=== PATIENT | female | born 1975 | race Caucasian/White ===

== ENCOUNTER → 2017-05-10 13:11 | Outpatient (CLI) | payer BC, SELFPAY ==
--- NOTE | 2017-05-10 13:17 | MM_ITS ---
MM Dig mamm DX unilat RT CAD ORDERING PHYSICIAN : Moises Alvarado PATIENT AGE: 42 years GENDER: Female COMPARISON: Previous mammograms: August. Ultrasound August 2016 INDICATION: Follow-up fairly asymmetric density right breast TECHNIQUE: Standard CC and MLO images were obtained. R2 CAD reviewed. FINDINGS: RIGHT BREAST: The subtle nodularity seen at the medial right breast appears stable if not less evident on today's studies. Spot views performed and reveal no suspicious or unique findings. No significant change patient may region bilateral mammogram in 6 months. IMPRESSION: No significant new findings. The vague questionable nodularity of the medial right breast is less evident today.. No areas of significant concern. May resume bilateral mammogram schedule 6 months BI-RADS Category: 2 Benign Finding(s) RECOMMENDED FOLLOW-UP: 6M - 6 MONTH FOLLOW-UP (A letter has been sent to the patient regarding results of the study.)
== END ==
PROVIDERS: Family Provider Internal Medicine Adolescent Medicine; PCP Internal Medicine Adolescent Medicine; Visit Provider Obstetrics & Gynecology
DX: R92.8 Other abnormal and inconclusive findings on diagnostic imaging of breast (principal)
CPT/HCPCS: 77065

== ENCOUNTER → 2017-09-20 12:57 | Outpatient (CLI) | payer BC, SELFPAY ==
[2017-09-20 13:47] LABS: Hemoglobin A1C 5.5 % (0.0-7.0)
[2017-09-20 14:08] LABS: Alanine Aminotransferase 17 U/L (12-78); Albumin Level 3.9 gm/dL (3.4-5.0); Albumin/Globulin Ratio 1.2 (1.1-1.8); Alkaline Phosphatase 84 U/L (46-116); Anion Gap 11.5 mEq/L (5-15); Aspartate Amino Transferase 10 U/L (15-37); Bilirubin,Total 0.4 mg/dL (0.2-1.0); Blood Urea Nitrogen 6 mg/dL (7-18); Calcium 8.8 mg/dL (8.5-10.1); Carbon Dioxide 27 mmol/L (21.0-32.0); Chloride 105 mmol/L (98-107); Chol/HDL Ratio 2.6 (1-3.5); Cholesterol 176 mg/dL (140-200); Creatinine,Serum 0.48 mg/dL (0.55-1.02); Estimated Glomerular Filt Rate 143 ml/min (>60); GFR (African American) 172 ML/MIN (>60); Globulin 3.3 gm/dl (1.3-3.2); Glucose 114 mg/dL (74-106); HDL Cholesterol 68 mg/dL (29-89); LDL Cholesterol 95 mg/dL (0-130); Potassium 4.5 mmoL/L (3.5-5.1); Sodium 139 mmol/L (136-145); Total Protein,Serum 7.2 gm/dL (6.4-8.2); Triglycerides 66 mg/dL (30-200); VLDL Cholesterol 13 mg/dL (0-40)
== END ==
PROVIDERS: Visit Provider Internal Medicine Adolescent Medicine
DX: E11.9 Type 2 diabetes mellitus without complications (principal)
CPT/HCPCS: 36415; 80053; 80061; 83036

== ENCOUNTER → 2018-07-04 15:44 | Outpatient (CLI) | payer BC, SELFPAY ==
[2018-07-04 17:00] LABS: Hemoglobin A1C 5.3 % (0.0-7.0)
[2018-07-04 17:26] LABS: Alanine Aminotransferase 20 U/L (12-78); Albumin Level 4.1 gm/dL (3.4-5.0); Albumin/Globulin Ratio 1.2 (1.1-1.8); Alkaline Phosphatase 91 U/L (46-116); Anion Gap 15.1 mEq/L (5-15); Aspartate Amino Transferase 8 U/L (15-37); Bilirubin,Total 0.4 mg/dL (0.2-1.0); Blood Urea Nitrogen 7 mg/dL (7-18); Calcium 9.4 mg/dL (8.5-10.1); Carbon Dioxide 26 mmol/L (21.0-32.0); Chloride 100 mmol/L (98-107); Chol/HDL Ratio 2.6 (1-3.5); Cholesterol 180 mg/dL (140-200); Creatinine,Serum 0.48 mg/dL (0.55-1.02); Estimated Glomerular Filt Rate 142 ml/min (>60); GFR (African American) 172 ML/MIN (>60); Globulin 3.3 gm/dl (1.3-3.2); Glucose 98 mg/dL (74-106); HDL Cholesterol 69 mg/dL (29-89); LDL Cholesterol 97 mg/dL (0-130); Potassium 4.1 mmoL/L (3.5-5.1); Sodium 137 mmol/L (136-145); Total Protein,Serum 7.4 gm/dL (6.4-8.2); Triglycerides 68 mg/dL (30-200); VLDL Cholesterol 14 mg/dL (0-40)
== END ==
PROVIDERS: Visit Provider Internal Medicine Adolescent Medicine
DX: E11.9 Type 2 diabetes mellitus without complications (principal)
CPT/HCPCS: 36415; 80053; 80061; 83036

== ENCOUNTER → 2019-04-07 13:26 | Outpatient (CLI) | payer BC, SELFPAY ==
[2019-04-07 14:42] LABS: Basophils # 0.1 K/mm3 (0-0.2); Basophils % 0.9 % (0.1-2.0); Eosinophils # 0.1 K/mm3 (0.0-0.4); Eosinophils % 1.8 % (0.1-12.0); Lymphocytes # 1.6 K/mm3 (0.7-4.5); Mean Corpuscular HGB Conc 25.9 g/dL (31.8-35.4); Mean Corpuscular Hemoglobin 15.1 pg (27.0-31.2); Mean Corpuscular Volume 58.4 fl (81-99); Mean Platelet Volume 7.7 fl (7.4-10.4); Monocytes # 0.3 K/mm3 (0.1-1.0); Monocytes % 6.3 % (1.7-9.3); Neutrophils % 59.1 % (37.0-80.0); Platelet Count 408 K/mm3 (142-424); Red Blood Count 4.46 M/mm3 (4.20-5.40); Red Cell Distribution Width 18.3 % (11.5-17.5)
[2019-04-07 14:50] LABS: Hemoglobin 6.7 g/dL (12.2-16.2)
[2019-04-07 15:05] LABS: Hemoglobin A1C 5.6 % (0.0-7.0)
[2019-04-07 15:36] LABS: Alanine Aminotransferase 13 U/L (12-78); Albumin Level 3.9 gm/dL (3.4-5.0); Albumin/Globulin Ratio 1.4 (1.1-1.8); Alkaline Phosphatase 87 U/L (46-116); Aspartate Amino Transferase 10 U/L (15-37); Bilirubin,Total 0.5 mg/dL (0.2-1.0); Blood Urea Nitrogen 6 mg/dL (7-18); Carbon Dioxide 27 mmol/L (21.0-32.0); Chloride 102 mmol/L (98-107); Chol/HDL Ratio 2.5 (1-3.5); Cholesterol 175 mg/dL (140-200); Estimated Glomerular Filt Rate 135 ml/min (>60); GFR (African American) 163 ML/MIN (>60); Globulin 2.8 gm/dl (1.3-3.2); Glucose 99 mg/dL (74-106); HDL Cholesterol 69 mg/dL (29-89); LDL Cholesterol 95 mg/dL (0-130); Sodium 138 mmol/L (136-145); Total Protein,Serum 6.7 gm/dL (6.4-8.2); Triglycerides 56 mg/dL (30-200); VLDL Cholesterol 11 mg/dL (0-40)
[2019-04-07 19:03] LABS: Ferritin 1 ng/mL (8-388)
[2019-04-09 09:02] LABS: Iron 16 ug/dL (27-159); Iron Saturation 3 % (15-55); UIBC 449 ug/dL (131-425)
[2019-04-09 10:59] LABS: Folate 12.7 ng/mL (>3.0); Vitamin B12 307 pg/mL (232-1245)
== END ==
PROVIDERS: Visit Provider Internal Medicine Adolescent Medicine
DX: E11.9 Type 2 diabetes mellitus without complications (principal); I10 Essential (primary) hypertension; D64.9 Anemia, unspecified
CPT/HCPCS: 36415; 80053; 80061; 82607; 82728; 82746; 83036; 83540; 83550; 85025; 86850

== ENCOUNTER → 2019-04-08 09:05 | Outpatient (CLI) | payer BC, SELFPAY ==
[2019-04-08] VITALS (21 sets, daily range): BP systolic 113–147; BP diastolic 65–84; PULSE 68–86; RESP 16–18; TEMP 36.7–37.1; O2SAT 99–100; BMI 36.6
[2019-04-08 16:53] LABS: Hematocrit 30.5 % (37.0-47.0); Hemoglobin 8.3 g/dL (12.2-16.2)
== END ==
PROVIDERS: PCP Internal Medicine Adolescent Medicine; Visit Provider Internal Medicine Adolescent Medicine
DX: D64.9 Anemia, unspecified (principal)
CPT/HCPCS: 36415; 36430; 85014; 85018; P9016

== ENCOUNTER → 2019-05-08 10:56 | Outpatient (CLI) | payer BC, SELFPAY ==
[2019-05-08 11:47] LABS: Basophils # 0.1 K/mm3 (0-0.2); Eosinophils # 0.1 K/mm3 (0.0-0.4); Eosinophils % 1.3 % (0.1-12.0); Hematocrit 37.1 % (37.0-47.0); Hemoglobin 10.6 g/dL (12.2-16.2); Lymphocytes # 1.4 K/mm3 (0.7-4.5); Lymphocytes % 23.7 % (10-50); Mean Corpuscular HGB Conc 28.4 g/dL (31.8-35.4); Mean Corpuscular Hemoglobin 21.1 pg (27.0-31.2); Mean Corpuscular Volume 74.1 fl (81-99); Mean Platelet Volume 8.3 fl (7.4-10.4); Monocytes # 0.3 K/mm3 (0.1-1.0); Monocytes % 5.5 % (1.7-9.3); Neutrophils # 4.1 K/mm3 (1.8-7.8); Neutrophils % 68.4 % (37.0-80.0); Platelet Count 341 K/mm3 (142-424); Red Blood Count 5.01 M/mm3 (4.20-5.40); Red Cell Distribution Width 23.5 % (11.5-17.5); White Blood Count 5.9 K/mm3 (4.8-10.8)
[2019-05-08 12:09] LABS: Chloride 105 mmol/L (98-107); Potassium 4.4 mmoL/L (3.5-5.1); Sodium 137 mmol/L (136-145)
[2019-05-08 12:11] LABS: Alanine Aminotransferase 11 U/L (12-78); Alkaline Phosphatase 79 U/L (38-126); Anion Gap 13.4 mEq/L (5-15); Aspartate Amino Transferase 17 U/L (14-36); Bilirubin,Total 0.2 mg/dl (0.2-1.3); Blood Urea Nitrogen 7 mg/dl (7-17); Carbon Dioxide 23 mmol/L (22.0-30.0); Estimated Glomerular Filt Rate 174 ml/min (>60); GFR (African American) 211 ML/MIN (>60)
[2019-05-08 12:12] LABS: Albumin Level 4.2 g/dl (3.5-5.0); Albumin/Globulin Ratio 1.6 (1.1-1.8); Calcium 9.9 mg/dl (8.4-10.2); Globulin 2.6 g/dL (1.3-3.2); Glucose 134 mg/dl (74-100); Total Protein,Serum 6.8 g/dl (6.3-8.2)
[2019-05-08 12:28] LABS: Free Thyroxine Index 2.7 ug/dL (5.93-13.13); T4 (Thyroxine) 9.9 ug/dl (5.53-11.0); Triiodothryronine (T3) Uptake 27 % (23.5-40.5)
[2019-05-08 12:46] LABS: Ferritin 7.19 ng/ml (6.24-137)
== END ==
PROVIDERS: Visit Provider Internal Medicine Adolescent Medicine
DX: D50.0 Iron deficiency anemia secondary to blood loss (chronic) (principal); N93.9 Abnormal uterine and vaginal bleeding, unspecified
CPT/HCPCS: 36415; 80053; 82728; 84436; 84443; 84479; 85025

== ENCOUNTER → 2020-05-01 10:04 | Outpatient (CLI) | payer BC, SELFPAY ==
[2020-05-01 11:34] LABS: Hemoglobin A1C 5.7 % (4.0-6.0)
[2020-05-01 11:40] LABS: Chloride 103 mmol/L (98-107)
[2020-05-01 11:41] LABS: Potassium 4.2 mmoL/L (3.5-5.1); Sodium 136 mmol/L (136-145)
[2020-05-01 11:43] LABS: Alanine Aminotransferase 22 U/L (12-78); Anion Gap 10.2 mEq/L (5-15); Aspartate Amino Transferase 25 U/L (14-36); Bilirubin,Total 0.6 mg/dl (0.2-1.3); Blood Urea Nitrogen 6 mg/dl (7-17); Carbon Dioxide 27 mmol/L (22.0-30.0); Estimated Glomerular Filt Rate 134 ml/min (>60); GFR (African American) 162 ML/MIN (>60)
[2020-05-01 11:44] LABS: Albumin Level 4.4 g/dl (3.5-5.0); Albumin/Globulin Ratio 1.6 (1.1-1.8); Alkaline Phosphatase 106 U/L (38-126); Calcium 10.1 mg/dl (8.4-10.2); Chol/HDL Ratio 2.7 (1-3.5); Cholesterol 203 mg/dl (140-200); Globulin 2.8 g/dL (1.3-3.2); Glucose 134 mg/dl (74-100); HDL Cholesterol 75 mg/dl (40-60); Total Protein,Serum 7.2 g/dl (6.3-8.2); Triglycerides 131 mg/dl (30-150); VLDL Cholesterol 26 mg/dL (0-40)
[2020-05-01 11:56] LABS: Direct LDL Cholesterol 100.75 mg/dL (100-129)
== END ==
PROVIDERS: Visit Provider Internal Medicine Adolescent Medicine
DX: E11.9 Type 2 diabetes mellitus without complications (principal)
CPT/HCPCS: 36415; 80053; 80061; 83036

== ENCOUNTER → 2020-10-22 14:21 | Outpatient (CLI) | payer BC, SELFPAY ==
[2020-10-22 14:48] LABS: Basophils # 0.1 K/mm3 (0-0.2); Basophils % 0.9 % (0.1-2.0); Eosinophils # 0.1 K/mm3 (0.0-0.4); Eosinophils % 1.4 % (0.1-12.0); Hematocrit 39.4 % (37.0-47.0); Hemoglobin 12.4 g/dL (12.2-16.2); Lymphocytes % 29.2 % (10-50); Mean Corpuscular HGB Conc 31.6 g/dL (31.8-35.4); Mean Platelet Volume 8.8 fl (7.4-10.4); Monocytes # 0.5 K/mm3 (0.1-1.0); Monocytes % 6.7 % (1.7-9.3); Neutrophils # 4.2 K/mm3 (1.8-7.8); Neutrophils % 61.8 % (37.0-80.0); Platelet Count 270 K/mm3 (142-424); Red Blood Count 4.98 M/mm3 (4.20-5.40); Red Cell Distribution Width 14.4 % (11.5-17.5); White Blood Count 6.8 K/mm3 (4.8-10.8)
[2020-10-22 15:24] LABS: Alanine Aminotransferase 27 U/L (12-78); Albumin Level 4.4 g/dl (3.5-5.0); Albumin/Globulin Ratio 1.7 (1.1-1.8); Alkaline Phosphatase 103 U/L (38-126); Anion Gap 10.3 mEq/L (5-15); Aspartate Amino Transferase 28 U/L (14-36); Bilirubin,Total 0.5 mg/dl (0.2-1.3); Blood Urea Nitrogen 6 mg/dl (7-17); Calcium 9.3 mg/dl (8.4-10.2); Carbon Dioxide 28 mmol/L (22.0-30.0); Chloride 102 mmol/L (98-107); Cholesterol 154 mg/dl (140-200); Estimated Glomerular Filt Rate 134 ml/min (>60); GFR (African American) 162 ML/MIN (>60); Globulin 2.6 g/dL (1.3-3.2); Glucose 114 mg/dl (74-100); HDL Cholesterol 76 mg/dl (40-60); Potassium 4.3 mmoL/L (3.5-5.1); Sodium 136 mmol/L (136-145); Triglycerides 120 mg/dl (30-150); VLDL Cholesterol 24 mg/dL (0-40)
[2020-10-22 15:34] LABS: Direct LDL Cholesterol 61.69 mg/dL (100-129)
[2020-10-22 16:19] LABS: Hemoglobin A1C 6.2 % (4.0-6.0)
== END ==
PROVIDERS: Visit Provider Internal Medicine Adolescent Medicine
DX: D50.0 Iron deficiency anemia secondary to blood loss (chronic) (principal)
CPT/HCPCS: 36415; 80053; 80061; 83036; 85025